=== PATIENT | female | born 1985 | race Caucasian/White ===

== ENCOUNTER 2016-06-21 18:06 | Emergency (ER) | payer BC ==
[~2016-06-21] VITALS: Ht 165.1 cm; Wt 70.5 kg
[~2016-06-21 18:06] MED LIST: MOTRIN 600600 MG/TAB PO; PRENTAL 1 PLUS1 TAB PO; SENOKOT S 50 MG1 TAB PO
[2016-06-21 18:11] VITALS: TEMP 98.2
[2016-06-21 18:49] LABS: BASO % 0.3 % (0.0-2.0); EOS # 0.1 (0.0-0.7); EOS % 1.2 % (0-4.0); GRAN # 6.8 (1.4-6.5); GRAN % 62.2 % (42.2-75.2); HEMATOCRIT 34.2 % (37.0-47.0); HEMOGLOBIN 11.2 g/dl (12.5-16.0); LYMPH # 3.4 (1.2-3.4); MEAN CELL VOLUME 89 fl (80.0-100.0); MEAN CORPUSCULAR HEMOGLOBIN 29 pg (27.0-31.0); MEAN CORPUSCULAR HGB CONC 33 g/dl (33.0-37.0); MONO # 0.6 (0.1-0.6); PLATELET COUNT 174 K/mm3 (130-400); RED BLOOD COUNT 3.85 M/mm3 (4.10-5.30)
[2016-06-21 18:57] LABS: ALBUMIN 3.6 gm/dL (3.5-5.0); BILIRUBIN,TOTAL 0.5 mg/dL (0.0-1.0); CALCIUM 8.7 mg/dL (8.4-10.2); CREATININE, serum 0.57 mg/dL (0.52-1.25); POTASSIUM 3.3 mmol/L (3.4-5.0); TOTAL PROTEIN 7.2 gm/dL (6.4-8.2)
[2016-06-21 19:35] LABS: PH 5 (5-8); SQUAMOUS EPITHELIAL 0-2 /hpf; URINE APPEARANCE Hazy; URINE BACTERIA None Seen /hpf; URINE BILIRUBIN Negative (NEGATIVE); URINE BLOOD Negative (NEGATIVE); URINE COLOR Amber; URINE GLUCOSE Negative (NEGATIVE); URINE KETONE Negative (NEGATIVE); URINE RBC 0-2 /hpf; URINE WBC 0-2 /hpf
[2016-06-21 20:18] VITALS: BP 116/69; PULSE 85
== END 2016-06-21 20:19 | disposition home or self-care (01) ==
LOC: COL.ER 18:06
PROVIDERS: Family Medicine
DX: O26.892 Other specified pregnancy related conditions, second trimester (principal); Z3A.19 19 weeks gestation of pregnancy; R10.2 Pelvic and perineal pain
CPT/HCPCS: J7030

== ENCOUNTER 2016-11-09 02:02 | Inpatient (IN) | payer BC ==
[~2016-11-09] VITALS: Ht 165.1 cm; Wt 80.9 kg
[2016-11-09] VITALS (14 sets, daily range): BP systolic 104–139; BP diastolic 51–78; PULSE 57–105; TEMP 97.6–98.6
[2016-11-10 05:36] VITALS: BP 102/65; PULSE 73; TEMP 97.8
[2016-11-10 08:00] VITALS: BP 116/63; PULSE 88; TEMP 97.6
[2016-11-10] MEDS ORDERED: IBU600 MG PO (11:15)
[2016-11-10] MEDS ORDERED: PERCOCET 325 MG1 TA2 PO (11:19)
== END 2016-11-10 14:55 | disposition home or self-care (01) | DRG 775 ==
LOC: LDRO 02:02 → LDR 02:03 → OB 05:30 → LDRO 11-15 14:17
PROC: 10E0XZZ Delivery of Products of Conception, External Approach (ICD-10-PCS; principal; 2016-11-09)
PROC: 0UBMXZZ Excision of Vulva, External Approach (ICD-10-PCS; 2016-11-09)
DX: O75.89 Other specified complications of labor and delivery (principal); N90.89 Other specified noninflammatory disorders of vulva and perineum; Z3A.39 39 weeks gestation of pregnancy; Z37.0 Single live birth
CPT/HCPCS: J2210; J2590; J7120

== ENCOUNTER → 2023-02-09 | Outpatient (CLI) | payer BC ==
[~2023-02-09] MED LIST changes: +IBU600 MG PO; +PERCOCET 325 MG1 TA2 PO
== END ==
LOC: COL.RAD 12:17
DX: E03.8 Other specified hypothyroidism (principal); E06.3 Autoimmune thyroiditis